=== PATIENT | male | born 1965 | race Caucasian/White ===

== ENCOUNTER 2022-03-21 14:52 | Inpatient (IN) | payer OTHER ==
[2022-03-21 16:13] VITALS: BMI 21.3
[2022-03-21] MEDS ORDERED: MAG HYDROX/AL HYDROX/SIMETH 30 ML UNIT-DOSE CUP PO PRN (16:53)
[2022-03-21] MEDS ORDERED: MAGNESIUM HYDROX 2400MG/30ML ORAL SUSPENSION 30 ML CUP PO PRN (16:53)
[2022-03-21] MEDS ORDERED: LOPERAMIDE HCL 2 MG CAPSULE PO PRN (16:53)
[2022-03-21] MEDS ORDERED: IBUPROFEN 400 MG TABLET (FP) PO PRN (16:53)
[2022-03-21] MEDS ORDERED: cloNIDine HCL 0.1 MG TABLET PO PRN (16:53)
[2022-03-21] MEDS ORDERED: MAGNESIUM CITRATE 300 ML BOTTLE PO PRN (16:53)
[2022-03-21] MEDS ORDERED: NICOTINE POLACRILEX 2 MG GUM BUC PRN (16:53)
[2022-03-21] MEDS ORDERED: ACETAMINOPHEN 325 MG TABLET (FP) PO PRN (16:53)
[2022-03-21] MEDS ORDERED: NICOTINE 10 MG CARTRIDGE (INHALER) IH PRN (16:53)
[2022-03-21] MEDS ORDERED: ONDANSETRON *ODT* 4 MG TABLET SL PRN (16:53)
[2022-03-21] MEDS ORDERED: BENZOCAINE/MENTHOL (CHLORASEPTIC ) LOZENGE MM PRN (16:53)
[2022-03-21] MEDS ORDERED: methaDONE HCL 10 MG TABLET (FOR DETOX USE ONLY) PO ONE (16:53)
[2022-03-21] MEDS ORDERED: BISMUTH SUBSALICYLATE 524 MG/30 ML PO PRN (16:53)
[2022-03-21] MEDS ORDERED: DICYCLOMINE HCL 10 MG CAPSULE PO PRN (16:53)
[2022-03-21] MEDS ORDERED: hydrOXYzine PAMOATE 25 MG CAPSULE (FP) PO ONE (17:16)
[2022-03-21] MEDS ORDERED: methaDONE HCL 10 MG TABLET (FOR DETOX USE ONLY) ONE (17:16)
[2022-03-21] MEDS: hydrOXYzine PAMOATE 25 MG CAPSULE (FP) PO SCH ×2 (17:23→22:19)
[2022-03-21] MEDS: PRENATAL VITAMINS W/ FOLIC ACID TABLET (FP) PO SCH (17:23)
[2022-03-21] MEDS: METHOCARBAMOL 500 MG TABLET PO PRN (20:06)
[2022-03-21] MEDS: MELATONIN 5 MG TABLETS PO SCH (22:19)
[2022-03-21] MEDS: THIAMINE HCL 100 MG TABLET (FP) PO SCH (22:19)
[2022-03-21] MEDS: IBUPROFEN 600 MG TABLET (FP) PO PRN (22:20)
[2022-03-22] MEDS: hydrOXYzine PAMOATE 25 MG CAPSULE (FP) PO SCH ×5 (05:35→22:06)
[2022-03-22 10:17] LABS: HEMATOCRIT 35.9 % (35.4-49); HEMOGLOBIN 12.4 GM/dL (11.7-16.9); MCH 30.3 pg (25.7-33.7); MCHC 34.6 g/dl (32.0-35.9); MEAN CELL VOLUME 87.6 fl (80-96); MEAN PLT VOLUME 8.2 fl (7.5-11.1); PLATELET COUNT 241 10^3/uL (134-434); RDW 12.2 % (11.9-15.9); WHITE BLOOD COUNT 6.6 K/mm3 (4.0-10.0)
[2022-03-22 10:19] LABS: CALCIUM 8.9 mg/dL (8.5-10.1)
[2022-03-22 10:20] LABS: BLOOD UREA NITROGEN 15.8 mg/dL (7-18)
[2022-03-22] MEDS: PRENATAL VITAMINS W/ FOLIC ACID TABLET (FP) PO SCH (10:22)
[2022-03-22] MEDS: METHOCARBAMOL 500 MG TABLET PO PRN ×2 (10:22→17:55)
[2022-03-22 10:23] LABS: CREATININE 0.7 mg/dL (0.55-1.3)
[2022-03-22 10:24] LABS: TOT PROT 5.5 g/dl (6.4-8.2)
[2022-03-22 10:25] LABS: BILIRUBIN,TOTAL 0.3 mg/dL (0.2-1)
[2022-03-22] MEDS: TAMSULOSIN HCL 0.4 MG CAP PO SCH ×2 (12:32→22:08)
[2022-03-22] MEDS: amLODIPine BESYLATE 10 MG TABLET (FP) PO SCH (12:32)
[2022-03-22] MEDS: MELATONIN 5 MG TABLETS PO SCH (22:06)
[2022-03-22] MEDS: THIAMINE HCL 100 MG TABLET (FP) PO SCH (22:06)
[2022-03-22] MEDS: levETIRAcetam 250 MG TABLET PO SCH (22:06)
[2022-03-22] MEDS: ACETAMINOPHEN 325 MG TABLET (FP) PO PRN (22:08)
[2022-03-23] MEDS: METHOCARBAMOL 500 MG TABLET PO PRN ×2 (06:44→18:12)
[2022-03-23] MEDS: hydrOXYzine PAMOATE 25 MG CAPSULE (FP) PO SCH ×5 (06:44→22:05)
[2022-03-23] MEDS ORDERED: methaDONE HCL 10 MG TABLET (FOR DETOX USE ONLY) PO ONE (10:00)
[2022-03-23 10:15] LABS: CALCIUM 9.2 mg/dL (8.5-10.1)
[2022-03-23 10:16] LABS: BLOOD UREA NITROGEN 9.3 mg/dL (7-18)
[2022-03-23 10:19] LABS: CREATININE 0.7 mg/dL (0.55-1.3)
[2022-03-23] MEDS: ACETAMINOPHEN 325 MG TABLET (FP) PO PRN (10:19)
[2022-03-23] MEDS: PRENATAL VITAMINS W/ FOLIC ACID TABLET (FP) PO SCH (10:21)
[2022-03-23] MEDS: levETIRAcetam 250 MG TABLET PO SCH ×2 (10:21→22:03)
[2022-03-23] MEDS: amLODIPine BESYLATE 10 MG TABLET (FP) PO SCH (10:21)
[2022-03-23] MEDS: TAMSULOSIN HCL 0.4 MG CAP PO SCH ×2 (10:21→22:03)
[2022-03-23] MEDS: GABAPENTIN 400 MG CAPSULE PO SCH ×2 (15:11→22:04)
[2022-03-23] MEDS: POTASSIUM CHLORIDE ORAL LIQUID 20 MEQ/15 ML PO SCH ×2 (15:11→22:04)
[2022-03-23] MEDS: IBUPROFEN 600 MG TABLET (FP) PO PRN (18:12)
[2022-03-23] MEDS: THIAMINE HCL 100 MG TABLET (FP) PO SCH (22:03)
[2022-03-23] MEDS: MELATONIN 5 MG TABLETS PO SCH (22:05)
[2022-03-24] MEDS: hydrOXYzine PAMOATE 25 MG CAPSULE (FP) PO SCH ×5 (05:50→22:04)
[2022-03-24] MEDS: GABAPENTIN 400 MG CAPSULE PO SCH ×3 (05:50→22:03)
[2022-03-24] MEDS: amLODIPine BESYLATE 10 MG TABLET (FP) PO SCH (10:38)
[2022-03-24] MEDS: METHOCARBAMOL 500 MG TABLET PO PRN (10:38)
[2022-03-24] MEDS: TAMSULOSIN HCL 0.4 MG CAP PO SCH ×2 (10:38→22:03)
[2022-03-24] MEDS: PRENATAL VITAMINS W/ FOLIC ACID TABLET (FP) PO SCH (10:39)
[2022-03-24] MEDS: levETIRAcetam 250 MG TABLET PO SCH ×2 (10:39→22:03)
[2022-03-24] MEDS ORDERED: POTASSIUM CHLORIDE TABS 20 MEQ TABLET.ER (FP) PO ONE ×2 (13:49→21:00)
[2022-03-24 14:19] LABS: BLOOD UREA NITROGEN 9.2 mg/dL (7-18); CALCIUM 8.9 mg/dL (8.5-10.1)
[2022-03-24 14:22] LABS: CREATININE 0.7 mg/dL (0.55-1.3)
[2022-03-24] MEDS: IBUPROFEN 600 MG TABLET (FP) PO PRN (17:17)
[2022-03-24] MEDS: MELATONIN 5 MG TABLETS PO SCH (22:04)
[2022-03-24] MEDS: THIAMINE HCL 100 MG TABLET (FP) PO SCH (22:04)
[2022-03-25] MEDS: GABAPENTIN 400 MG CAPSULE PO SCH ×3 (05:35→22:14)
[2022-03-25] MEDS: hydrOXYzine PAMOATE 25 MG CAPSULE (FP) PO SCH ×5 (05:35→22:15)
[2022-03-25] MEDS ORDERED: methaDONE HCL 10 MG TABLET (FOR DETOX USE ONLY) PO ONE (10:00)
[2022-03-25] MEDS: levETIRAcetam 250 MG TABLET PO SCH ×2 (10:27→22:14)
[2022-03-25] MEDS: TAMSULOSIN HCL 0.4 MG CAP PO SCH ×2 (10:27→22:44)
[2022-03-25] MEDS: PRENATAL VITAMINS W/ FOLIC ACID TABLET (FP) PO SCH (10:28)
[2022-03-25] MEDS: amLODIPine BESYLATE 10 MG TABLET (FP) PO SCH (10:28)
[2022-03-25] MEDS: IBUPROFEN 600 MG TABLET (FP) PO PRN (10:30)
[2022-03-25 12:49] VITALS: RESP 18
[2022-03-25] MEDS: METHOCARBAMOL 500 MG TABLET PO PRN (17:26)
[2022-03-25] MEDS ORDERED: QUEtiapine FUMARATE 50 MG TABLET PO SCH (22:00)
[2022-03-25] MEDS: THIAMINE HCL 100 MG TABLET (FP) PO SCH (22:15)
[2022-03-25] MEDS: MELATONIN 5 MG TABLETS PO SCH (22:16)
[2022-03-26] MEDS: GABAPENTIN 400 MG CAPSULE PO SCH (06:20)
[2022-03-26] MEDS: hydrOXYzine PAMOATE 25 MG CAPSULE (FP) PO SCH ×2 (06:21→10:12)
[2022-03-26 09:10] VITALS: BP 121/61; PULSE 88; TEMP 98.6
[2022-03-26] MEDS: METHOCARBAMOL 500 MG TABLET PO PRN (10:12)
[2022-03-26] MEDS: levETIRAcetam 250 MG TABLET PO SCH (10:12)
[2022-03-26] MEDS: PRENATAL VITAMINS W/ FOLIC ACID TABLET (FP) PO SCH (10:12)
[2022-03-26] MEDS: amLODIPine BESYLATE 10 MG TABLET (FP) PO SCH (10:12)
[2022-03-26] MEDS: TAMSULOSIN HCL 0.4 MG CAP PO SCH (11:22)
== END 2022-03-26 11:42 | disposition other institution (70) | DRG 773 ==
LOC: YASAS 14:52 → Y3N 17:42
PROVIDERS: ADMIT Allergy & Immunology; ATTEND Surgery
PROC: HZ2ZZZZ Detoxification Services for Substance Abuse Treatment (ICD-10-PCS; principal; 2022-03-21)
DX: F11.23 Opioid dependence with withdrawal (principal); F14.20 Cocaine dependence, uncomplicated; F12.20 Cannabis dependence, uncomplicated; F17.210 Nicotine dependence, cigarettes, uncomplicated; F41.9 Anxiety disorder, unspecified; F32.A Depression, unspecified; G40.909 Epilepsy, unspecified, not intractable, without status epilepticus; I10 Essential (primary) hypertension; E87.5 Hyperkalemia; E87.6 Hypokalemia; R73.9 Hyperglycemia, unspecified; R94.5 Abnormal results of liver function studies
CPT/HCPCS: 36415; 80048; 80053; 84132; 85027; 86780; 87811; C9803-CS; U0003; U0005

== ENCOUNTER 2022-03-26 11:40 | Inpatient (IN) | payer OTHER ==
[2022-03-26] MEDS ORDERED: MAGNESIUM CITRATE 300 ML BOTTLE PO PRN (12:21)
[2022-03-26] MEDS ORDERED: MAGNESIUM HYDROX 2400MG/30ML ORAL SUSPENSION 30 ML CUP PO PRN (12:21)
[2022-03-26] MEDS ORDERED: LOPERAMIDE HCL 2 MG CAPSULE PO PRN (12:21)
[2022-03-26] MEDS ORDERED: BENZOCAINE/MENTHOL (CHLORASEPTIC ) LOZENGE MM PRN (12:21)
[2022-03-26] MEDS ORDERED: guaiFENesin 200 MG/10 ML 10 ML UNIT-DOSE CUPS PO PRN (12:21)
[2022-03-26] MEDS ORDERED: ACETAMINOPHEN 325 MG TABLET (FP) PO PRN (12:21)
[2022-03-26] MEDS ORDERED: P-EPHED 60MG/TRIPROLIDI 2.5MG TABLET PO PRN (12:21)
[2022-03-26] MEDS ORDERED: IBUPROFEN 400 MG TABLET (FP) PO PRN (12:21)
[2022-03-26] MEDS ORDERED: MAG HYDROX/AL HYDROX/SIMETH 30 ML UNIT-DOSE CUP PO PRN (12:21)
[2022-03-26] MEDS: GABAPENTIN 400 MG CAPSULE PO SCH ×2 (13:51→21:22)
[2022-03-26] MEDS: levETIRAcetam 250 MG TABLET PO SCH (21:22)
[2022-03-26] MEDS: TAMSULOSIN HCL 0.4 MG CAP PO SCH (21:22)
[2022-03-26] MEDS: MELATONIN 5 MG TABLETS PO SCH (21:22)
[2022-03-26] MEDS: THIAMINE HCL 100 MG TABLET (FP) PO SCH (21:22)
[2022-03-26] MEDS: QUEtiapine FUMARATE 50 MG TABLET PO SCH (21:23)
[2022-03-27] MEDS: GABAPENTIN 400 MG CAPSULE PO SCH ×3 (06:12→21:27)
[2022-03-27] MEDS: hydrOXYzine PAMOATE 25 MG CAPSULE (FP) PO PRN ×2 (10:22→21:28)
[2022-03-27] MEDS: PRENATAL VITAMINS W/ FOLIC ACID TABLET (FP) PO SCH (10:22)
[2022-03-27] MEDS: NICOTINE 7 MG/24 HOURS TOPICAL PATCH TD SCH (10:22)
[2022-03-27] MEDS: levETIRAcetam 250 MG TABLET PO SCH ×2 (10:23→21:27)
[2022-03-27] MEDS: TAMSULOSIN HCL 0.4 MG CAP PO SCH ×2 (10:23→21:28)
[2022-03-27] MEDS: amLODIPine BESYLATE 10 MG TABLET (FP) PO SCH (10:23)
[2022-03-27] MEDS: PANTOPRAZOLE 20 MG TABLET PO SCH (10:23)
[2022-03-27] MEDS ORDERED: COLLOIDAL OATMEAL 1 BAR EACH TP PRN (16:05)
[2022-03-27] MEDS: MELATONIN 5 MG TABLETS PO SCH (21:27)
[2022-03-27] MEDS: THIAMINE HCL 100 MG TABLET (FP) PO SCH (21:28)
[2022-03-27] MEDS: QUEtiapine FUMARATE 50 MG TABLET PO SCH (21:28)
[2022-03-27] MEDS: METHYL SALICYLATE/MENTHOL OINT 30 GM TUBE TP SCH (21:35)
[2022-03-28] MEDS: GABAPENTIN 400 MG CAPSULE PO SCH ×3 (06:10→21:37)
[2022-03-28] MEDS: TAMSULOSIN HCL 0.4 MG CAP PO SCH ×2 (10:00→21:37)
[2022-03-28] MEDS: amLODIPine BESYLATE 10 MG TABLET (FP) PO SCH (10:00)
[2022-03-28] MEDS: levETIRAcetam 250 MG TABLET PO SCH ×2 (10:00→21:37)
[2022-03-28] MEDS: NICOTINE 7 MG/24 HOURS TOPICAL PATCH TD SCH (10:00)
[2022-03-28] MEDS: PANTOPRAZOLE 20 MG TABLET PO SCH (10:00)
[2022-03-28] MEDS: hydrOXYzine PAMOATE 25 MG CAPSULE (FP) PO PRN ×2 (10:01→21:38)
[2022-03-28] MEDS: METHYL SALICYLATE/MENTHOL OINT 30 GM TUBE TP SCH ×2 (10:01→21:37)
[2022-03-28] MEDS: PRENATAL VITAMINS W/ FOLIC ACID TABLET (FP) PO SCH (10:01)
[2022-03-28] MEDS ORDERED: BUPRENORPHINE/NALOXONE 2 MG/0.5 MG FILM PACKET SL ONE (13:30)
[2022-03-28] MEDS: THIAMINE HCL 100 MG TABLET (FP) PO SCH (21:37)
[2022-03-28] MEDS: QUEtiapine FUMARATE 50 MG TABLET PO SCH (21:37)
[2022-03-28] MEDS: MELATONIN 5 MG TABLETS PO SCH (21:38)
[2022-03-29] MEDS: GABAPENTIN 400 MG CAPSULE PO SCH ×3 (05:58→21:28)
[2022-03-29] MEDS: hydrOXYzine PAMOATE 25 MG CAPSULE (FP) PO PRN ×3 (05:58→21:28)
[2022-03-29] MEDS ORDERED: BUPRENORPHINE/NALOXONE 4 MG/1 MG FILM PACKET SL SCH (10:00)
[2022-03-29] MEDS: METHYL SALICYLATE/MENTHOL OINT 30 GM TUBE TP SCH ×2 (10:04→21:29)
[2022-03-29] MEDS: TAMSULOSIN HCL 0.4 MG CAP PO SCH ×2 (10:04→21:28)
[2022-03-29] MEDS: PRENATAL VITAMINS W/ FOLIC ACID TABLET (FP) PO SCH (10:05)
[2022-03-29] MEDS: amLODIPine BESYLATE 10 MG TABLET (FP) PO SCH (10:05)
[2022-03-29] MEDS: levETIRAcetam 250 MG TABLET PO SCH ×2 (10:05→21:28)
[2022-03-29] MEDS: NICOTINE 7 MG/24 HOURS TOPICAL PATCH TD SCH (10:05)
[2022-03-29] MEDS: PANTOPRAZOLE 20 MG TABLET PO SCH (10:06)
[2022-03-29] MEDS: THIAMINE HCL 100 MG TABLET (FP) PO SCH (21:27)
[2022-03-29] MEDS: MELATONIN 5 MG TABLETS PO SCH (21:27)
[2022-03-29] MEDS: QUEtiapine FUMARATE 50 MG TABLET PO SCH (21:28)
[2022-03-30] MEDS: NICOTINE 10 MG CARTRIDGE (INHALER) IH PRN (06:04)
[2022-03-30] MEDS: GABAPENTIN 400 MG CAPSULE PO SCH ×3 (06:28→21:27)
[2022-03-30] MEDS: levETIRAcetam 250 MG TABLET PO SCH ×2 (10:04→21:27)
[2022-03-30] MEDS: amLODIPine BESYLATE 10 MG TABLET (FP) PO SCH (10:04)
[2022-03-30] MEDS: METHYL SALICYLATE/MENTHOL OINT 30 GM TUBE TP SCH ×2 (10:04→21:59)
[2022-03-30] MEDS: PANTOPRAZOLE 20 MG TABLET PO SCH (10:04)
[2022-03-30] MEDS: PRENATAL VITAMINS W/ FOLIC ACID TABLET (FP) PO SCH (10:04)
[2022-03-30] MEDS: TAMSULOSIN HCL 0.4 MG CAP PO SCH ×2 (10:04→21:27)
[2022-03-30] MEDS: BUPRENORPHINE/NALOXONE 8 MG/2 MG FILM PACKET SL SCH (10:04)
[2022-03-30] MEDS: hydrOXYzine PAMOATE 25 MG CAPSULE (FP) PO PRN ×3 (10:05→21:27)
[2022-03-30] MEDS: NICOTINE 7 MG/24 HOURS TOPICAL PATCH TD SCH (10:06)
[2022-03-30] MEDS: MELATONIN 5 MG TABLETS PO SCH (21:26)
[2022-03-30] MEDS: THIAMINE HCL 100 MG TABLET (FP) PO SCH (21:26)
[2022-03-30] MEDS: QUEtiapine FUMARATE 50 MG TABLET PO SCH (21:27)
[2022-03-31] MEDS: hydrOXYzine PAMOATE 25 MG CAPSULE (FP) PO PRN ×3 (05:54→13:52)
[2022-03-31] MEDS: GABAPENTIN 400 MG CAPSULE PO SCH ×2 (05:54→13:52)
[2022-03-31 06:28] VITALS: BP 143/81; PULSE 89; RESP 16; TEMP 97.1
[2022-03-31] MEDS: levETIRAcetam 250 MG TABLET PO SCH (09:59)
[2022-03-31] MEDS: amLODIPine BESYLATE 10 MG TABLET (FP) PO SCH (10:00)
[2022-03-31] MEDS: BUPRENORPHINE/NALOXONE 8 MG/2 MG FILM PACKET SL SCH (10:00)
[2022-03-31] MEDS: PRENATAL VITAMINS W/ FOLIC ACID TABLET (FP) PO SCH (10:00)
[2022-03-31] MEDS: TAMSULOSIN HCL 0.4 MG CAP PO SCH (10:00)
[2022-03-31] MEDS: PANTOPRAZOLE 20 MG TABLET PO SCH (10:00)
[2022-03-31] MEDS: NICOTINE 10 MG CARTRIDGE (INHALER) IH PRN (10:01)
[2022-03-31] MEDS: NICOTINE 7 MG/24 HOURS TOPICAL PATCH TD SCH (10:02)
[2022-03-31] MEDS: METHYL SALICYLATE/MENTHOL OINT 30 GM TUBE TP SCH (10:02)
== END 2022-03-31 16:20 | disposition home or self-care (01) | DRG 772 ==
LOC: YASAS 11:40 → Y5N 11:41
PROVIDERS: ADMIT Allergy & Immunology; ATTEND Psychiatry & Neurology Psychiatry
PROC: HZ42ZZZ Group Counseling for Substance Abuse Treatment, Cognitive-Behavioral (ICD-10-PCS; principal; 2022-03-26)
DX: F11.20 Opioid dependence, uncomplicated (principal); F14.20 Cocaine dependence, uncomplicated; F12.20 Cannabis dependence, uncomplicated; F17.210 Nicotine dependence, cigarettes, uncomplicated; I10 Essential (primary) hypertension; G40.909 Epilepsy, unspecified, not intractable, without status epilepticus; E78.5 Hyperlipidemia, unspecified
CPT/HCPCS: 36415; 84132